=== PATIENT | male | born 1975 | race Caucasian/White ===

== ENCOUNTER 2017-04-24 23:04 | Emergency (ER) | payer SELFPAY ==
--- NOTE | 2017-04-24 23:21 | PDOC ---
History of Present Illness - General Stated Complaint: DIFF. BREATHING Time Seen by Provider: 04/24/17 23:07 - History of Present Illness Initial Comments: 04/24/17 23:29 Pt is a 42 y/o M with no PMH who presents to ED 45 min after an insect- repellant fogger was accidentally discharged inside his home. Pt did breath some of the smoke and quickly went outside. He experienced approximately 15 min of intense coughing, wheezing, throat swelling, runny nose, watery eyes, and very small amounts of hemoptysis. Currently, all respiratory symptoms have resolved. O2 sats 98%. No resp distress. Past History - Past Medical History Allergies/Adverse Reactions: Allergies Allergy/AdvReac Type Severity Reaction Status Date / Time No Known Allergies Allergy Verified 04/24/17 23:26 Review of Systems - Review of Systems Able to Perform ROS?: Yes Is the patient limited [place] proficient: No Constitutional: Yes: Symptoms Reported. No: Chills, Diaphoresis, Fever HEENTM: Yes: Symptoms Reported, Tearing. No: Eye Pain, Blurred Vision, Ear Discharge Respiratory: Yes: Symptoms reported, Cough, Wheezing Cardiac (ROS): Yes: Symptoms Reported. No: Edema, Palpitations, Chest Tightness ABD/GI: Yes: Symptoms Reported. No: Diarrhea, Nausea, Poor Fluid Intake, Vomiting, Abdominal cramping : Yes: Symptoms Reported. No: Burning, Dysuria, Hematuria, Pain Musculoskeletal: Yes: Symptoms Reported. No: Back Pain, Joint Pain Integumentary: Yes: Symptoms Reported. No: Erythema, Flushing, Lesions, Rash Neurological: Yes: Symptoms reported. No: Headache, Numbness, Paresthesia, Tremors, Weakness *Physical Exam - Physical Exam General Appearance: Yes: Nourished, Appropriately Dressed. No: Apparent Distress, Disheveled HEENT: positive: EOMI, TATI, Normal ENT Inspection, Pharynx Normal Neck: positive: Supple. negative: Tender, Carotid bruit, Stridor Respiratory/Chest: positive: Lungs Clear, Normal Breath Sounds. negative: Chest Tender, Labored Respiration, Rapid RR, Decreased Breath Sounds, Paradoxal Breathing, Crackles, Stridor, Wheezing, Hyperresonant Cardiovascular: positive: Regular Rhythm, Regular Rate, S1, S2 Vascular Pulses: Dorsalis-Pedis (R): 2+, Doralis-Pedis (L): 2+ Gastrointestinal/Abdominal: positive: Normal Bowel Sounds, Flat, Soft. 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 Pt had symptoms of pneumonitis for 15 min which have resolved. Poison control called: [id number]-poisons Felipe Miranda Stated that inhalational injury is uncommon with foggers as the smoke is highly irritant and so people avoid it. Thus exposure tends to be limited. Stated that if respiratory symptoms are resolved, there is little to do. Normal recommendations center around avoidance of further exposure and supportive care. Family should make sure the house is well ventilated before returning home. *DC/Admit/Observation/Transfer Diagnosis at time of Disposition: Exposure to chemical irritant - Discharge Dispostion Disposition: HOME Condition at time of disposition: Guarded Admit: No - Referrals - Patient Instructions Additional Instructions: Please follow up with your primary medical doctor. If your symptoms get worse or if you develop new symptoms, please return to the emergency department immediately. The number for poison control is [id number] - Post Discharge Activity
--- NOTE | 2017-04-24 23:23 | PDOC ---
Attending Attestation - Resident Resident Name: JanaandieBa - ED Attending Attestation I have performed the following: I have examined & evaluated the patient, The case was reviewed & discussed with the resident, I agree w/resident's findings & plan - HPI HPI: 04/24/17 23:22 Bug Bomb went off in the home and dad and kids all had SOB - Physicial Exam PE: 04/24/17 23:23 Agree with resident exam - Medical Decision Making 04/24/17 23:23 Discussed with [place] Poison control center. 04/25/17 00:34 Pt has no difficulty breathing. Lungs clear, no wheezing. He has sore throat, which we will treat with benadryl. He will go home with his family.
[2017-04-24 23:26] VITALS: BP 144/95; PULSE 107; TEMP 98.3; BMI 36.0
== END 2017-04-25 00:12 | disposition home or self-care (01) ==
LOC: JER 23:04
DX: T60.2X1A Toxic effect of other insecticides, accidental (unintentional), initial encounter (principal); Y92.018 Other place in single-family (private) house as the place of occurrence of the external cause
CPT/HCPCS: 99281-25